=== PATIENT | male | born 1980 | race Hispanic/Latino ===

== ENCOUNTER 2021-03-14 15:45 | Emergency (ER) | payer OTHER | END 2021-03-14 16:47 | disposition home or self-care (01) | LOC: MADERS 15:45 | DX: S16.1XXA Strain of muscle, fascia and tendon at neck level, initial encounter (principal); V49.9XXA Car occupant (driver) (passenger) injured in unspecified traffic accident, initial encounter | CPT/HCPCS: 99283 ==

== ENCOUNTER 2021-03-20 16:03 | Outpatient (CLI) | payer OTHER | END 2021-03-20 16:04 | disposition home or self-care (01) | LOC: MADRAD 16:03 | PROVIDERS: ATTEND Neurological Surgery | DX: M50.00 Cervical disc disorder with myelopathy, unspecified cervical region (principal) | CPT/HCPCS: 72040 ==

== ENCOUNTER 2021-03-30 07:48 | Emergency (ER) | payer OTHER ==
[2021-03-30] MEDS ORDERED: Dexamethasone 4 MG TAB ONE (09:20)
[2021-03-30] MEDS ORDERED: Gabapentin 100 MG CAP ONE (09:20)
[2021-03-30] MEDS ORDERED: Ibuprofen 800 MG TAB ONE (09:20)
== END 2021-03-30 09:29 | disposition home or self-care (01) ==
LOC: MADERS 07:48
DX: M62.830 Muscle spasm of back (principal); E66.9 Obesity, unspecified; V89.2XXA Person injured in unspecified motor-vehicle accident, traffic, initial encounter
CPT/HCPCS: 99283; J8540

== ENCOUNTER 2021-05-02 16:01 | Outpatient (CLI) | payer OTHER | END 2021-05-02 16:02 | disposition home or self-care (01) | LOC: MADLAB 16:01 | PROVIDERS: ATTEND Neurological Surgery | DX: M48.02 Spinal stenosis, cervical region (principal); M54.50 Low back pain, unspecified; M47.816 Spondylosis without myelopathy or radiculopathy, lumbar region | CPT/HCPCS: 72040; 72100 ==

== ENCOUNTER 2021-12-25 13:58 | Outpatient (CLI) | payer OTHER | END 2021-12-25 13:59 | disposition home or self-care (01) | LOC: MADRAD 13:58 | PROVIDERS: ATTEND Neurological Surgery | DX: M51.26 Other intervertebral disc displacement, lumbar region (principal); M47.816 Spondylosis without myelopathy or radiculopathy, lumbar region | CPT/HCPCS: 72100 ==

== ENCOUNTER 2022-02-26 15:13 | Outpatient (CLI) | payer OTHER | END 2022-02-26 15:14 | disposition home or self-care (01) | LOC: MADRAD 15:13 | PROVIDERS: ATTEND Neurological Surgery | DX: M54.2 Cervicalgia (principal); M47.812 Spondylosis without myelopathy or radiculopathy, cervical region; Z98.1 Arthrodesis status | CPT/HCPCS: 72040; 72100 ==